=== PATIENT | male | born 1965 | race Caucasian/White ===

== ENCOUNTER 2016-08-27 20:27 | Inpatient (IN) | payer SELFPAY ==
[~2016-08-27] VITALS: Ht 182.9 cm; Wt 119.1 kg
[2016-08-27 20:25] VITALS: O2SAT 97
[2016-08-27] MEDS ORDERED: ceFAZolin 2 GM PREMIX 50 ML ONE (20:32)
[2016-08-27] MEDS ORDERED: DIPHTH/TETANUS/ACEL PERTUSSIS (BOOSTER) 0.5 ML VIAL/PFS IM ONE (20:32)
[2016-08-27] MEDS ORDERED: IOHEXOL 350 MG/ML 10 ML VIAL (for RAD DIAG) IV ONE (20:43)
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
[2016-08-27 20:49] LABS: I-STAT POTASSIUM 4.4 MMOL/L (3.5-4.9)
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
[2016-08-27 20:53] LABS: AUTOMATED NEUTROPHIL # 6.3 TH/MM3 (1.8-7.7); BASOPHIL # 0.1 TH/MM3 (0-0.2); BASOPHIL % 0.5 % (0.0-2.0); EOSINOPHIL # 0.3 TH/MM3 (0-0.4); EOSINOPHIL % 2.2 % (0.0-4.0); HEMATOCRIT 45.2 % (39.0-51.0); LYMPHOCYTE # 6.4 TH/MM3 (1.0-4.8); MEAN CELL VOLUME 85.1 FL (80.0-100.0); MEAN CORPUSCULAR HEMOGLOBIN 28.6 PG (27.0-34.0); MEAN CORPUSCULAR HGB CONC 33.6 % (32.0-36.0); MONO % 5.6 % (0.0-8.0); NEUT % 45.7 % (16.0-70.0); PLATELET COUNT 228 TH/MM3 (150-450); RED BLOOD COUNT 5.31 MIL/MM3 (4.50-5.90); RED CELL DISTRIBUTION WIDTH 14.2 % (11.6-17.2); WHITE BLOOD COUNT 13.9 TH/MM3 (4.0-11.0)
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
[2016-08-27 20:58] LABS: PROTHROMBIN TIME - PATIENT 11.4 SEC (9.8-11.6)
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
[2016-08-27] MEDS ORDERED: MISCELLANEOUS NURSING INFORMATION XX SCH (21:00)
[2016-08-27] MEDS ORDERED: ENALAPRILAT 1.25 MG/ML VIAL IV PRN (21:00)
[2016-08-27] MEDS ORDERED: SODIUM CHLORIDE 0.9% FLUSH 5 ML FLUSH IVF PRN (21:00)
[2016-08-27] MEDS ORDERED: ACETAMINOPHEN/HYDROcodone 325 MG/5 MG TAB PO PRN (21:00)
[2016-08-27] MEDS ORDERED: CHLORHEXIDINE GLUCONATE 2 % 1 PACK (2 CLOTHS) TOP PRN (21:00)
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
[2016-08-27 21:10] VITALS: O2SAT 96
[2016-08-27] MEDS ORDERED: LIDOCAINE 1%/EPINEPHrine 1:100,000 SOLN 20 ML VIAL INFIL ONE (21:15)
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
[2016-08-27 21:19] LABS: HEMO FLAGS AUTO DIFF
[2016-08-27 21:22] VITALS: BP 145/78; PULSE 104; RESP 20; O2SAT 96
[2016-08-27] MEDS ORDERED: ONDANSETRON HCL 4 MG/2 ML VIAL ONE (21:24)
[2016-08-27] MEDS ORDERED: ZOLO100T PO (21:24)
[2016-08-27] MEDS ORDERED: ONDANSETRON HCL 4 MG/2 ML VIAL IV PUSH ONE (21:30)
[2016-08-27] MEDS: LACTATED RINGER'S 1000 ML INJ 1,000 ML IV SCH (21:32)
[2016-08-27 21:40] LABS: EOSINOPHILS 2 % (0-4); NEUTROPHIL # MANUAL DIFF 6.3 TH/MM3 (1.8-7.7); PLATELET ESTIMATE SMEAR NORMAL (NORMAL); PLATELET MORPHOLOGY NORMAL (NORMAL); POLYS (SEG NEUTROPHILS) 45 % (16-70); SCAN/DIFF FINAL DIFF MANUAL; WBC DIFF SAMPLE 100
[2016-08-27] MEDS ORDERED: LORazepam 2 MG/ML VIAL IV PUSH ONE (21:45)
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
[2016-08-28] MEDS: ACETAMINOPHEN/HYDROcodone 325 MG/5 MG TAB PO PRN ×4 (00:33→13:39)
[2016-08-28 00:43] VITALS: BP 131/75; PULSE 95; RESP 20; TEMP 97.8; O2SAT 95
[2016-08-28] MEDS: HYDROmorphone HCL PF 2 MG/ML VIAL IVP PRN ×3 (03:39→09:32)
[2016-08-28] MEDS ORDERED: CHLORHEXIDINE GLUCONATE 2 % 1 PACK (2 CLOTHS) TOP SCH (04:00)
[2016-08-28 04:35] VITALS: BP 105/72; PULSE 81; RESP 20; TEMP 97.8; O2SAT 95
[2016-08-28] MEDS: LACTATED RINGER'S 1000 ML INJ 1,000 ML IV SCH (04:53)
[2016-08-28] MEDS ORDERED: MECLIZINE HCL 25 MG TAB PO PRN (08:00)
[2016-08-28] MEDS ORDERED: ONDANSETRON HCL 4 MG/2 ML VIAL IV PUSH PRN (08:00)
[2016-08-28] MEDS ORDERED: PANTOPRAZOLE SODIUM 40 MG VIAL IV PUSH SCH (08:15)
[2016-08-28 08:21] VITALS: BP 138/79; PULSE 67; RESP 19; TEMP 98.4; O2SAT 93
[2016-08-28] MEDS ORDERED: DOCUSATE SODIUM 50 MG/SENNA 8.6 MG TAB PO SCH (09:00)
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
[2016-08-28 09:28] LABS: AUTOMATED NEUTROPHIL # 8.3 TH/MM3 (1.8-7.7); BASOPHIL % 0.3 % (0.0-2.0); EOSINOPHIL % 0.4 % (0.0-4.0); HEMATOCRIT 43.3 % (39.0-51.0); HEMO FLAGS DIFF FINAL; MEAN CELL VOLUME 85.6 FL (80.0-100.0); MEAN CORPUSCULAR HEMOGLOBIN 28.6 PG (27.0-34.0); MEAN CORPUSCULAR HGB CONC 33.4 % (32.0-36.0); MONO % 7.8 % (0.0-8.0); NEUT % 73.5 % (16.0-70.0); PLATELET COUNT 187 TH/MM3 (150-450); RED BLOOD COUNT 5.06 MIL/MM3 (4.50-5.90); RED CELL DISTRIBUTION WIDTH 14.6 % (11.6-17.2); WHITE BLOOD COUNT 11.3 TH/MM3 (4.0-11.0)
[2016-08-28 10:36] LABS: BICARBONATE 24.4 MEQ/L (21.0-32.0); POTASSIUM 4.3 MEQ/L (3.5-5.1)
[2016-08-28 12:01] VITALS: BP 111/73; PULSE 74; RESP 19; TEMP 96.6; O2SAT 93
[2016-08-28] MEDS ORDERED: METHOCARBAMOL 500 MG TAB PO SCH (15:00)
[2016-08-28] MEDS ORDERED: NICOTINE 14 MG/24 HR PATCH TD SCH (15:00)
[2016-08-28 16:00] VITALS: BP 131/78; PULSE 81; RESP 18; TEMP 96.5; O2SAT 94
[2016-08-28] MEDS ORDERED: BACITRACIN/POLYMYXIN B 15 GM TUBE TOPICAL SCH (16:00)
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
== END 2016-08-28 17:31 | disposition left against medical advice (07) | DRG 87 ==
LOC: NEPI 20:27 → NEDA 21:23 → EDBD 21:23 → N05B 23:53
PROVIDERS: ADMIT Surgery Trauma Surgery; ATTEND Surgery Trauma Surgery
PROC: 0HQ0XZZ Repair Scalp Skin, External Approach (ICD-10-PCS; principal; 2016-08-27)
PROC: 0HQEXZZ Repair Left Lower Arm Skin, External Approach (ICD-10-PCS; 2016-08-27)
DX: S02.0XXA Fracture of vault of skull, initial encounter for closed fracture (principal); R11.0 Nausea; S01.81XA Laceration without foreign body of other part of head, initial encounter; S62.667A Nondisplaced fracture of distal phalanx of left little finger, initial encounter for closed fracture; S06.0X9A Concussion with loss of consciousness of unspecified duration, initial encounter; S51.812A Laceration without foreign body of left forearm, initial encounter; S50.312A Abrasion of left elbow, initial encounter; S02.80XA Fracture of other specified skull and facial bones, unspecified side, initial encounter for closed fracture; V20.4XXA Motorcycle driver injured in collision with pedestrian or animal in traffic accident, initial encounter; Y92.488 Other paved roadways as the place of occurrence of the external cause; Y93.89 Activity, other specified; Y99.9 Unspecified external cause status; Z90.5 Acquired absence of kidney; Z85.528 Personal history of other malignant neoplasm of kidney
CPT/HCPCS: 12002; 12054; 70450; 71010; 71260; 72125; 72170; 73070; 73120; 74177; 80048; 82435; 82565; 82947; 84132; 84295; 84520; 85007; 85025; 85027; 85610; 85730; 86850; 86900; 86901; 90471; 90715; 96374; 96375; 99291; A0431-QM-SH; A0436-QM-SH; G0390; J0690; J1170; J2060; J2405; J3010; J7120; Q9967